=== PATIENT | female | born 1965 | race Caucasian/White ===

== ENCOUNTER 2017-05-19 01:05 | Emergency (ER) | payer OTHER ==
[~2017-05-19] VITALS: Ht 172.7 cm; Wt 74.8 kg
[~2017-05-19 01:05] MED LIST: ESTRACE VAG0.1 MG/GM VA; INFANRIX IM; TET/DIP TOX1 ML IM
[2017-05-19] MEDS ORDERED: NAPROSYN500 MG PO (02:26)
[2017-05-19 02:55] VITALS: BP 113/68
== END 2017-05-19 02:56 | disposition home or self-care (01) | DRG 605 ==
LOC: ED 01:05
DX: S80.01XA Contusion of right knee, initial encounter (principal); V49.49XA Driver injured in collision with other motor vehicles in traffic accident, initial encounter; Y92.410 Unspecified street and highway as the place of occurrence of the external cause

== ENCOUNTER 2018-03-02 20:29 | Emergency (ER) | payer OTHER ==
[~2018-03-02] VITALS: Ht 172.7 cm; Wt 70.0 kg
[~2018-03-02 20:29] MED LIST changes: +NAPROSYN500 MG PO
[2018-03-02 20:58] VITALS: BP 100/60
== END 2018-03-02 20:58 | disposition home or self-care (01) | DRG 951 ==
LOC: ED 20:29
DX: Z20.818 Contact with and (suspected) exposure to other bacterial communicable diseases (principal)

== ENCOUNTER 2018-03-13 16:04 | Emergency (ER) | payer OTHER ==
[~2018-03-13] VITALS: Ht 172.7 cm; Wt 68.0 kg
[2018-03-13 16:40] VITALS: BP 110/60
== END 2018-03-13 16:43 | disposition home or self-care (01) | DRG 951 ==
LOC: ED 16:04
DX: Z20.811 Contact with and (suspected) exposure to meningococcus (principal); Y99.0 Civilian activity done for income or pay